=== PATIENT | male | born 2000 | race Caucasian/White ===

== ENCOUNTER 2023-05-28 00:25 | Emergency (ER) | payer OTHER, SELFPAY ==
[2023-05-28 00:29] VITALS: BP 122/91; PULSE 107; RESP 18; O2SAT 97; BMI 26.4
--- NOTE | 2023-05-28 00:39 | XR_ITS ---
The [address] [address] Patient Name: GAL COLEMAN MRN: [id number] date: 2000 Sex: M Assigned Patient Location: ER Current Patient Location: .[facility] Accession/Order Number: [id number] Exam Date: 05/28/2023 00:48 Report Date: 05/28/2023 01:28 At the request of: ERVIN MUNOZ Procedure: XR hand RT min 3V EXAM: XR ankle LT min 3V, XR hand RT min 3V HISTORY: pain - Injury COMPARISON: None. TECHNIQUE: 3 views of the right hand and 3 views of the left ankle were obtained. FINDINGS: Right hand: No acute fracture or dislocation is seen. There is remote posttraumatic deformity of the fifth metacarpal. The joint spaces are preserved. Left ankle: No acute fracture or dislocation is seen. There is widening of the medial clear space. There is no significant left ankle joint effusion. XR/XR hand RT min 3V IMPRESSION: 1. No acute fracture or dislocation of the right hand is seen. If pain persists, repeat radiographs are recommended in 7-10 days. 2. Widening of the medial clear space, concerning for a ligamentous injury. Dedicated left tibia and fibula radiographs are recommended for evaluation of the proximal fibula. Electronically authenticated by: Christo CHAIREZ Date: 05/28/2023 01:28
--- NOTE | 2023-05-28 00:39 | XR_ITS ---
The [address] [address] Patient Name: GAL COLEMAN MRN: [id number] date: 2000 Sex: M Assigned Patient Location: ER Current Patient Location: [facility] Accession/Order Number: [id number] Exam Date: 05/28/2023 00:48 Report Date: 05/28/2023 01:28 At the request of: ERVIN MUNOZ Procedure: XR ankle LT min 3V EXAM: XR ankle LT min 3V, XR hand RT min 3V HISTORY: pain - Injury COMPARISON: None. TECHNIQUE: 3 views of the right hand and 3 views of the left ankle were obtained. FINDINGS: Right hand: No acute fracture or dislocation is seen. There is remote posttraumatic deformity of the fifth metacarpal. The joint spaces are preserved. Left ankle: No acute fracture or dislocation is seen. There is widening of the medial clear space. There is no significant left ankle joint effusion. XR/XR ankle LT min 3V IMPRESSION: 1. No acute fracture or dislocation of the right hand is seen. If pain persists, repeat radiographs are recommended in 7-10 days. 2. Widening of the medial clear space, concerning for a ligamentous injury. Dedicated left tibia and fibula radiographs are recommended for evaluation of the proximal fibula. Electronically authenticated by: Christo CHAIREZ Date: 05/28/2023 01:28
--- NOTE | 2023-05-28 01:27 | ED_ITS ---
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 Injured his left ankle and right hand. Denies other injury Related Data Home Medications Medication Instructions Recorded Confirmed No Known Home Medications 05/28/23 05/28/23 Allergies Allergy/AdvReac Type Severity Reaction Status Date / Time No Known Drug Allergies Allergy Verified 05/28/23 00:33 Review of Systems ROS Status of ROS 10 or more systems reviewed and unremarkable except as noted in history and below [facility] Social History Smoking status: Current every day smoker Exam Constitutional Vital Signs, click to edit/add: Last Vital Signs Pulse 107 H 05/28/23 00:29 Resp 18 05/28/23 00:29 BP 122/91 05/28/23 00:29 Pulse Ox 97 05/28/23 00:29 O2 Del Method Room Air 05/28/23 00:29 Common normals: no apparent distress, oriented x3, no limitations, healthy appearing and alert Eye Common normals: EOMs intact bilaterally and conjunctivae normal Respiratory Common normals: normal respiratory effort, no retractions, no use of accessory muscles and clear to auscultation bilaterally Cardio Common normals: regular rate, regular rhythm, S1 normal heart sound and S2 normal heart sound Extremity Other: swelling and tenderness of the left ankle. Mild swelling of the right hand. Neuro Common normals: oriented x3, CN's II-XII intact bilaterally and no focal motor deficits Psych Appearance: grossly normal Course Vital Signs Vital signs: Vital Signs Pulse Rate 107 H 05/28/23 00:29 Respiratory Rate 18 05/28/23 00:29 Blood Pressure 122/91 05/28/23 00:29 Pulse Oximetry 97 05/28/23 00:29 Oxygen Delivery Method Room Air 05/28/23 00:29 Pulse Rate 107 H 05/28/23 00:29 Respiratory Rate 18 05/28/23 00:29 Blood Pressure 122/91 05/28/23 00:29 Pulse Oximetry 97 05/28/23 00:29 Oxygen Delivery Method Room Air 05/28/23 00:29 MDM - Extremity Injury (Lower) MDM Narrative Medical decision making narrative: patient twisted his left ankle down a couple of stairs. has mild-mod swelling of the ankle. No discoloration. N/V intact. xray with widening of the medial clear space. patient and informed of the ligamentous injury and the fact the he will eventually need surgery. Ankle immobilized and patient referred to orthopedics mild contusion right hand as xray is neg Imaging Data Abdominal x-ray: Attestation: I have reviewed the pertinent imaging results. Radiologist's impression: ERVIN MUNOZ Procedure: XR ankle LT min 3V EXAM: XR ankle LT min 3V, XR hand RT min 3V HISTORY: pain - Injury COMPARISON: None. TECHNIQUE: 3 views of the right hand and 3 views of the left ankle were obtained. FINDINGS: Right hand: No acute fracture or dislocation is seen. There is remote posttraumatic deformity of the fifth metacarpal. The joint spaces are preserved. Left ankle: No acute fracture or dislocation is seen. There is widening of the medial clear space. There is no significant left ankle joint effusion. IMPRESSION: 1. No acute fracture or dislocation of the right hand is seen. If pain persists, repeat radiographs are recommended in 7-10 days. 2. Widening of the medial clear space, concerning for a ligamentous injury. Dedicated left tibia and fibula radiographs are recommended for evaluation of the proximal fibula. Electronically authenticated by: Christo CHAIREZ Date: 05/28/2023 01:28 Discharge Plan Discharge Chief Complaint: Extremity Injury, Lower Clinical Impression: Ankle sprain and strain, Contusion of hand, right, Alcohol intoxication Patient Disposition: Home, Self-Care Prescriptions / Home Meds: No Action No Known Home Medications Instructions: Ankle Sprain (ED), Alcohol Intoxication (DC), Contusion in Adults (ED) Additional Instructions: follow up with Dr Reyes monday. Keep leg elevated Stand Alone Forms: Portal Instructions Referrals: Physician,Non-Staff, MD [Primary Care Provider] - 1 week Discharge Date/Time: 05/28/23 04:23 Procedures ED Procedure Instructions Procedures Procedures: left ankle ligamentous injury: posterior ankle splint placed. fiber glass material used to form the splint. N/V post procedure WNL
--- NOTE | 2023-05-28 01:41 | XR_ITS ---
The [place] [id number] Patient Name: GAL COLEMAN MRN: [id number] date: 2000 Sex: M Assigned Patient Location: ER Current Patient Location: ER Accession/Order Number: [id number] Exam Date: 05/28/2023 01:55 Report Date: 05/28/2023 03:03 At the request of: ERVIN MUNOZ Procedure: XR tibia fibula LT 2V XR tibia fibula LT 2V, XR foot LT min 3V 05/28/2023 1:55 AM EDT CLINICAL INDICATION: Injury COMPARISON: Left ankle radiographs 05/28/2023 TECHNIQUE: 2 views of the left tibia and fibula. 3 views of the left foot. FINDINGS: Left tibia and fibula The bones are intact. The alignment is anatomic. The soft tissues are grossly unremarkable. Left foot The bones are intact. The alignment is anatomic. Widening of the medial ankle mortise is again seen. The joints are otherwise maintained. XR/XR tibia fibula LT 2V IMPRESSION: No acute osseous abnormality involving the left tibia or fibula. No acute osseous abnormality of the left foot. Electronically authenticated by: VICK WATSON Date: 05/28/2023 03:03
--- NOTE | 2023-05-28 01:41 | XR_ITS ---
The [address] [address] Patient Name: GAL COLEMAN MRN: [id number] date: 2000 Sex: M Assigned Patient Location: ER Current Patient Location: ER Accession/Order Number: [id number] Exam Date: 05/28/2023 01:55 Report Date: 05/28/2023 03:03 At the request of: ERVIN MUNOZ Procedure: XR foot LT min 3V XR tibia fibula LT 2V, XR foot LT min 3V 05/28/2023 1:55 AM EDT CLINICAL INDICATION: Injury COMPARISON: Left ankle radiographs 05/28/2023 TECHNIQUE: 2 views of the left tibia and fibula. 3 views of the left foot. FINDINGS: Left tibia and fibula The bones are intact. The alignment is anatomic. The soft tissues are grossly unremarkable. Left foot The bones are intact. The alignment is anatomic. Widening of the medial ankle mortise is again seen. The joints are otherwise maintained. XR/XR foot LT min 3V IMPRESSION: No acute osseous abnormality involving the left tibia or fibula. No acute osseous abnormality of the left foot. Electronically authenticated by: VICK WATSON Date: 05/28/2023 03:03
[2023-05-28] MEDS: IBUPROFEN 600 MG TABLET PO (03:47)
--- NOTE | 2023-05-28 03:48 | PC.NURSE ---
Pt's left leg splinted with Dr. Avery Appointment scheduled with Dr. Reyes
== END 2023-05-28 04:23 | disposition home or self-care (01) ==
PROVIDERS: Emergency Provider Internal Medicine
DX: S93.402A Sprain of unspecified ligament of left ankle, initial encounter (principal); S96.912A Strain of unspecified muscle and tendon at ankle and foot level, left foot, initial encounter; S60.221A Contusion of right hand, initial encounter; F10.129 Alcohol abuse with intoxication, unspecified; W10.9XXA Fall (on) (from) unspecified stairs and steps, initial encounter; F17.210 Nicotine dependence, cigarettes, uncomplicated
CPT/HCPCS: 29515; 73130; 73590; 73610; 73630; 99284

== ENCOUNTER 2023-06-05 10:27 | Outpatient (OUT) | payer OTHER, SELFPAY ==
--- NOTE | 2023-06-05 10:29 | XR_ITS ---
The [place] [id number] Patient Name: GAL COLEMAN MRN: [id number] date: 2000 Sex: M Assigned Patient Location: [facility] Current Patient Location: [facility] Accession/Order Number: [id number] Exam Date: 06/05/2023 10:35 Report Date: 06/05/2023 14:05 At the request of: JESSIE CORREA Procedure: XR ankle LT min 3V STUDY: XR ankle LT min 3V, [id number] HISTORY: Anterior taiofibular ligament spasm of L ankle S93.492A COMPARISON: Left ankle x-rays 05/28/2023. FINDINGS: No acute fracture, dislocation, or suspicious osseous lesion. No significant degenerative changes. No lucent lesion of the talar dome. XR/XR ankle LT min 3V IMPRESSION: No acute osseous abnormality demonstrated. If there is clinical concern for radiographic occult fracture or significant soft tissue injury which prevents weightbearing then recommend noncontrast MRI of the ankle for further evaluation. Electronically authenticated by: JAISON NEWBY Date: 06/05/2023 14:05
== END 2023-06-05 10:28 | disposition home or self-care (01) ==
LOC: RAD 10:27
PROVIDERS: Visit Provider Orthopaedic Surgery
DX: S93.492A Sprain of other ligament of left ankle, initial encounter (principal)
CPT/HCPCS: 73610

== ENCOUNTER 2023-06-19 11:13 | Outpatient (OUT) | payer OTHER, SELFPAY ==
--- NOTE | 2023-06-19 11:21 | XR_ITS ---
The [place] [id number] Patient Name: GAL COLEMAN MRN: [id number] date: 2000 Sex: M Assigned Patient Location: [facility] Current Patient Location: Accession/Order Number: [id number] Exam Date: 06/19/2023 12:00 Report Date: 06/20/2023 07:33 At the request of: JESSIE CORREA Procedure: XR ankle LT min 3V PROCEDURE: XR ankle LT min 3V COMPARISON: 06/05/2023 HISTORY: Sprain Of Anterior Talofibular Ligament Of Left Ankle S93.49 FINDINGS: BONES:No fracture, acute abnormality, or significant arthropathy. SOFT TISSUES:Moderate diffuse soft tissue swelling EFFUSION:None visible. OTHER: Negative. XR/XR ankle LT min 3V IMPRESSION: Soft tissue swelling. No acute fracture Electronically authenticated by: JON MAHMOOD Date: 06/20/2023 07:33
== END 2023-06-19 11:14 | disposition home or self-care (01) ==
LOC: RAD 11:15
PROVIDERS: Visit Provider Orthopaedic Surgery
DX: S93.492A Sprain of other ligament of left ankle, initial encounter (principal)
CPT/HCPCS: 73610

== ENCOUNTER 2024-08-01 17:20 | Emergency (ER) | payer OTHER, SELFPAY ==
[2024-08-01 17:23] VITALS: BP 164/90; PULSE 104; TEMP 37; O2SAT 95; BMI 25.8
--- NOTE | 2024-08-01 17:37 | ED.GENADUL1 ---
HPI HPI - General Adult General Chief complaint: Extremity Problem, Nontraumatic Stated complaint: upper pain Time Seen by Provider: 08/01/24 17:25 Source: patient and friend Mode of arrival: walk-in Limitations: no limitations History of Present Illness HPI narrative: Patient presents to ED complaining of a lump on the trapezius area on the right. He said that he is not sure what really happened but it started to get a little bit sore and swollen today. 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 He also wears Carhart's and the straps go right over that area so he is not sure if it was rubbing on it. He said he is felt some warmth go up into the side of his neck and ear. No lymphangitis no ear pain no fevers no nausea vomiting. No rash anywhere else and no exposure to new food or anything that could have caused an allergic reaction that he is aware of. No other complaints at this time. Related Data Previous Rx's ?Medication ?Instructions ?Recorded doxycycline hyclate 100 mg capsule 100 mg PO BID 10 days #20 caps 08/01/24 methylprednisolone 4 mg tablets in 4 mg PO DAILY #21 ea 08/01/24 a dose pack (Medrol (Willis)) Allergies Allergy/AdvReac Type Severity Reaction Status Date / Time No Known Drug Allergies Allergy Verified 08/01/24 17:27 Opioid HPI Opioid Management Most Recent Opioid Data: No Data to Display Review of Systems ROS Status of ROS 10 or more systems reviewed and unremarkable except as noted in history and below PFSH PFS Social History Smoking status: Current every day smoker Little interest or pleasure in doing things: not at all Feeling down, depressed, or hopeless: not at all Exam Narrative Exam Narrative: General: alert, no acute distress Cardiovascular: regular rate and rhythm, normal peripheral perfusion. Respiratory: Lungs CTA, respirations non labored. Extremities: Patient is a 3 x 3 cm area of induration and erythema on the right trapezius muscle. Mildly tender to palpation. No purulent drainage. No lymphangitis. Normal distal pulses and sensation. Neurological: oriented x 4, LOC appropriate for age. Constitutional Vital Signs, click to edit/add: Last Vital Signs Temp 98.6 F 08/01/24 17:23 Pulse 104 H 08/01/24 17:23 Resp 16 08/01/24 17:23 BP 164/90 H 08/01/24 17:23 Pulse Ox 95 08/01/24 17:23 O2 Del Method Room Air 08/01/24 17:23 Course Vital Signs Vital signs: Vital Signs Temperature 98.6 F 08/01/24 17:23 Pulse Rate 104 H 08/01/24 17:23 Respiratory Rate 16 08/01/24 17:23 Blood Pressure 164/90 H 08/01/24 17:23 Pulse Oximetry 95 08/01/24 17:23 Oxygen Delivery Method Room Air 08/01/24 17:23 Temperature 98.6 F 08/01/24 17:23 Pulse Rate 104 H 08/01/24 17:23 Respiratory Rate 16 08/01/24 17:23 Blood Pressure 164/90 H 08/01/24 17:23 Pulse Oximetry 95 08/01/24 17:23 Oxygen Delivery Method Room Air 08/01/24 17:23 Medical Decision Making MDM Narrative Medical decision making narrative: This appears to be an infection or infected bug bite more than any muscular issue at this time. I will send the patient home on steroids for the inflammation and antibiotics for the infection. Patient was instructed to keep an eye on the area and return to the emergency room if it is growing in size or certainly if there are fevers, streaking redness up the neck or down the arm, or any other concerns. Patient denies any drug allergies. Patient comfortable care plan for home. Differential Diagnosis Differential Diagnosis: Sprain strain contusion abscess cellulitis rash Discharge Plan Discharge Chief Complaint: Extremity Problem, Nontraumatic Clinical Impression: Abscess of skin Patient Disposition: Home, Self-Care Time of Disposition Decision: 17:41 Condition: Good Mode of Transportation: Private Vehicle Prescriptions / Home Meds: New doxycycline hyclate 100 mg capsule 100 mg PO BID 10 Days Qty: 20 0RF methylprednisolone [Medrol (Willis)] 4 mg tablets,dose pack 4 mg PO DAILY Qty: 21 0RF Print Language: Kyrgyz Instructions: Abscess (ED) Referrals: Mervat Grey SPICE FUMIGATOR [Primary Care Provider] - 1 week
--- NOTE | 2024-08-01 18:01 | PC.NURSE ---
PT LEFT UNFINISHED [facility] WITH REG -- CALLED PT AND ASKED IF HE HAD AN INJURY AT WORK AND PT STATED HE DID NOT. PT STATES BECAUSE HE NOTICED IT AT WORK, REG TOLD HIM TO FILL OUT [facility]. PT TELLS THIS RN THAT HE DOES NOT WANT TO FILE [facility] SINCE HE WAS DX WITH INFECTION. [facility]
== END 2024-08-01 17:56 | disposition home or self-care (01) ==
PROVIDERS: Emergency Provider Emergency Medicine; PCP Nurse Practitioner Family
DX: L02.212 Cutaneous abscess of back [any part, except buttock and flank] (principal)
CPT/HCPCS: 99281